=== PATIENT | female | born 1940 | race Caucasian/White ===

== ENCOUNTER 2016-10-06 09:24 | Inpatient (IN) | payer MEDICARE, OTHER ==
[2016-09-28 11:25] VITALS: BP 158/84
[~2016-10-06] VITALS: Ht 157.5 cm; Wt 79.8 kg
[~2016-10-06 09:24] MED LIST: AMLO2.5T PO; CLON0.1T PO
[2016-10-06] MEDS ORDERED: VANCOMYCIN PER PHARMACY MC ONE (09:54)
[2016-10-06] MEDS ORDERED: LACTATED RINGERS 1,000 ML IV SCH (09:58)
[2016-10-06] MEDS ORDERED: LIDOCAINE 1%, 2ML SQ PRN (10:00)
[2016-10-06] MEDS ORDERED: LISI5TAB7 PO (10:19)
[2016-10-06] MEDS ORDERED: VANCOMYCIN 1,500 MG in SODIUM CHLORIDE 0.9% 250 ML IV ONE (10:30)
[2016-10-06] MEDS ORDERED: FENTANYL PF 250 MCG/5ML ONE (11:26)
[2016-10-06] MEDS ORDERED: MIDAZOLAM 1 MG/ML, 2ML ONE (11:27)
[2016-10-06] MEDS ORDERED: ROCURONIUM 10 MG/ML ONE (13:58)
[2016-10-06] MEDS ORDERED: SUCCINYLCHOLINE 20 MG/ML, 10ML ONE (13:58)
[2016-10-06] MEDS ORDERED: PROPOFOL 10 MG/ML, 20ML ONE (13:58)
[2016-10-06] MEDS ORDERED: NEOSTIGMINE 1 MG/ML, 10ML ONE (13:58)
[2016-10-06] MEDS ORDERED: GLYCOPYRROLATE 0.2MG/1ML ONE (13:58)
[2016-10-06] MEDS ORDERED: CEFAZOLIN 1,000 MG ONE (13:58)
[2016-10-06] MEDS ORDERED: LABETALOL 5MG/ML, 20ML IV PRN (14:30)
[2016-10-06] MEDS ORDERED: ONDANSETRON 2MG/ML, 2ML IVPush PRN (14:30)
[2016-10-06] MEDS ORDERED: hydrALAzine 20 MG/ML, 1ML IV PRN (14:30)
[2016-10-06] MEDS ORDERED: METOCLOPRAMIDE 5 MG/ML, 2ML IV PRN (14:30)
[2016-10-06] MEDS ORDERED: ACETAMINOPHEN 325 MG TABLET PO PRN (14:30)
[2016-10-06] MEDS ORDERED: OXYcodone 5 MG/5 ML ORAL.SOL UDC PO PRN (14:30)
[2016-10-06] MEDS ORDERED: DIPHENHYDRAMINE 50 MG CAPSULE PO PRN (15:30)
[2016-10-06] MEDS ORDERED: SENNA/DOCUSATE TABLET PO PRN (15:30)
[2016-10-06] MEDS ORDERED: MAGNESIUM HYDROXIDE 8%, 30ML UDC PO PRN (15:30)
[2016-10-06] MEDS ORDERED: ONDANSETRON 4 MG TABLET PO PRN (15:30)
[2016-10-06] MEDS ORDERED: BISACODYL 10 MG SUPP PR PRN (15:30)
[2016-10-06] MEDS ORDERED: HYDROmorphone 1 MG/ML, 1ML IV PRN (15:30)
[2016-10-06] MEDS ORDERED: ONDANSETRON 2MG/ML, 2ML IV PRN (15:30)
[2016-10-06] MEDS ORDERED: ALUMINUM/MAG/SIMETHICONE 30 ML UDC PO PRN (15:30)
[2016-10-06] MEDS ORDERED: FENTANYL PF 100 MCG/2ML ONE (15:44)
[2016-10-06] MEDS ORDERED: OXYcodone 5 MG/5 ML ORAL.SOL UDC ONE (15:44)
[2016-10-06] MEDS ORDERED: HYDROmorphone 2 MG/ML, 1ML ONE (15:44)
[2016-10-06] MEDS ORDERED: ACETAMINOPHEN 650 MG/20.3 ML UDC ONE (15:44)
[2016-10-06] MEDS ORDERED: TRANEXAMIC ACID 1,000 MG in SODIUM CHLORIDE 0.9% 100 ML IVPB ONE (15:45)
[2016-10-06] MEDS: HYDROmorphone 1 MG/ML, 1ML IV PRN ×2 (16:15→16:20)
[2016-10-06] MEDS: ACETAMINOPHEN 650 MG/20.3 ML UDC PO SCH ×2 (16:15→22:12)
[2016-10-06] MEDS: FENTANYL PF 100 MCG/2ML IV PRN ×2 (16:29→16:40)
[2016-10-06] MEDS ORDERED: SCOPOLAMINE PATCH, 1.5MG PATCH.TD72 TD SCH (18:00)
[2016-10-06] MEDS: D5%-0.45NACL+KCL 20MEQ 1,000 ML IV SCH (18:30)
[2016-10-06 19:43] VITALS: BP 136/58
[2016-10-06] MEDS: DOCUSATE 100 MG CAPSULE PO SCH (22:12)
[2016-10-06] MEDS: OXYcodone IR 5MG TABLET PO PRN (22:13)
[2016-10-06] MEDS: LISINOPRIL 5 MG TABLET PO SCH (22:13)
[2016-10-07] MEDS: CEFAZOLIN PMX 1GM/50ML 50 ML IVPB SCH ×2 (01:38→08:56)
[2016-10-07 01:56] VITALS: BP 144/66
[2016-10-07] MEDS: D5%-0.45NACL+KCL 20MEQ 1,000 ML IV SCH ×3 (02:00→17:21)
[2016-10-07 04:40] VITALS: BP 125/56
[2016-10-07] MEDS ORDERED: DEXAMETHASONE 4 MG/ML, 1ML IVPush SCH (06:00)
[2016-10-07] MEDS: ACETAMINOPHEN 650 MG/20.3 ML UDC PO SCH ×3 (06:13→09:30)
[2016-10-07] MEDS: OXYcodone IR 5MG TABLET PO PRN (06:14)
[2016-10-07 08:00] VITALS: BP 140/62
[2016-10-07] MEDS: MULTIVITAMINS/MINERALS TABLET PO SCH (08:55)
[2016-10-07] MEDS: DOCUSATE 100 MG CAPSULE PO SCH ×2 (08:55→22:53)
[2016-10-07] MEDS: TAMSULOSIN 0.4 MG CAP.ER.24H PO SCH (08:55)
[2016-10-07 14:00] VITALS: BP 127/69
[2016-10-07] MEDS: ACETAMINOPHEN 325 MG TABLET PO SCH ×3 (16:30→23:01)
[2016-10-07] MEDS ORDERED: ACETAMINOPHEN 325 MG TABLET PO SCH (16:30)
[2016-10-07] MEDS: ASPIRIN 325 MG TABLET EC PO SCH (18:40)
[2016-10-07 20:18] VITALS: BP 140/70
[2016-10-07] MEDS: LISINOPRIL 5 MG TABLET PO SCH ×2 (22:54→23:00)
[2016-10-08] MEDS: D5%-0.45NACL+KCL 20MEQ 1,000 ML IV SCH ×4 (02:00→21:39)
[2016-10-08 02:35] VITALS: BP 127/62
[2016-10-08] MEDS: ACETAMINOPHEN 325 MG TABLET PO SCH ×4 (04:30→21:38)
[2016-10-08] MEDS: ASPIRIN 325 MG TABLET EC PO SCH ×2 (06:13→18:02)
[2016-10-08 08:00] VITALS: BP 127/52
[2016-10-08] MEDS: TAMSULOSIN 0.4 MG CAP.ER.24H PO SCH (08:20)
[2016-10-08] MEDS: DOCUSATE 100 MG CAPSULE PO SCH ×2 (08:20→21:37)
[2016-10-08] MEDS: MULTIVITAMINS/MINERALS TABLET PO SCH (08:20)
[2016-10-08 14:00] VITALS: BP 120/53
[2016-10-08 20:14] VITALS: BP 137/71
[2016-10-08] MEDS: LISINOPRIL 5 MG TABLET PO SCH (21:00)
[2016-10-09 01:15] VITALS: BP 127/74
[2016-10-09] MEDS ORDERED: DOCU-30 PO (01:30)
[2016-10-09] MEDS ORDERED: ASPI-650 PO (01:30)
[2016-10-09] MEDS ORDERED: MULT-658 PO (01:31)
[2016-10-09] MEDS ORDERED: ONDA4TAB7 PO (01:33)
[2016-10-09] MEDS ORDERED: OXYC5CAP4 PO (01:33)
[2016-10-09] MEDS: ACETAMINOPHEN 325 MG TABLET PO SCH ×2 (04:15→10:30)
[2016-10-09] MEDS: ASPIRIN 325 MG TABLET EC PO SCH (05:39)
[2016-10-09 06:35] VITALS: BP 137/67
[2016-10-09] MEDS: TAMSULOSIN 0.4 MG CAP.ER.24H PO SCH (09:00)
[2016-10-09] MEDS: DOCUSATE 100 MG CAPSULE PO SCH (09:00)
[2016-10-09] MEDS: MULTIVITAMINS/MINERALS TABLET PO SCH (09:06)
[2016-10-09] MEDS: D5%-0.45NACL+KCL 20MEQ 1,000 ML IV SCH (10:00)
== END 2016-10-09 12:32 | disposition left against medical advice (07) | DRG 502 ==
LOC: ORIP 09:24 → 4NOR 17:25
PROVIDERS: ADMIT Orthopaedic Surgery Adult Reconstructive Orthopaedic Surgery; ATTEND Orthopaedic Surgery Adult Reconstructive Orthopaedic Surgery
PROC: 0KXN0ZZ Transfer Right Hip Muscle, Open Approach (ICD-10-PCS; principal; 2016-10-06 12:30)
DX: T84.89XA Other specified complication of internal orthopedic prosthetic devices, implants and grafts, initial encounter (principal); R26.2 Difficulty in walking, not elsewhere classified; Y83.8 Other surgical procedures as the cause of abnormal reaction of the patient, or of later complication, without mention of misadventure at the time of the procedure; Z88.5 Allergy status to narcotic agent; Z91.030 Bee allergy status; Z90.711 Acquired absence of uterus with remaining cervical stump; Z98.51 Tubal ligation status; Y92.89 Other specified places as the place of occurrence of the external cause
CPT/HCPCS: 36415; 85014; 85018; J0690; J1100; J1170; J2250; J2704; J2710; J3010; J3490; J0330; J3480; J7120